=== PATIENT | male | born 1975 | race African-American/Black ===

== ENCOUNTER 2017-07-29 20:57 | Emergency (ER) | payer SELFPAY ==
[2017-07-29 21:30] VITALS: BP 166/94
[2017-07-29] MEDS ORDERED: FLUORESCEIN OPHTH TEST STRIP. OS ONE (21:45)
[2017-07-29] MEDS ORDERED: TETRACAINE 0.5% OPHTH SOLUTION 4ML BOTTLE. OS ONE (21:45)
[2017-07-29] MEDS ORDERED: TOBR5DRO2 OS (22:06)
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
== END 2017-07-29 22:36 | disposition home or self-care (01) ==
LOC: ER 20:57
DX: S05.02XA Injury of conjunctiva and corneal abrasion without foreign body, left eye, initial encounter (principal); F31.9 Bipolar disorder, unspecified; I10 Essential (primary) hypertension; F12.10 Cannabis abuse, uncomplicated; F15.10 Other stimulant abuse, uncomplicated; F14.10 Cocaine abuse, uncomplicated; Z86.718 Personal history of other venous thrombosis and embolism; W50.0XXA Accidental hit or strike by another person, initial encounter; Y93.89 Activity, other specified; Y92.89 Other specified places as the place of occurrence of the external cause; Y99.8 Other external cause status
CPT/HCPCS: 99283